=== PATIENT | female | born 1935 | race Caucasian/White ===

== ENCOUNTER → 2016-12-01 | Outpatient (CLI) | payer OTHER | LOC: FIMAGING 09:03 | PROVIDERS: ATTEND Family Medicine | DX: Z12.31 Encounter for screening mammogram for malignant neoplasm of breast (principal) | CPT/HCPCS: G0202 ==

== ENCOUNTER → 2017-01-07 | Outpatient (CLI) | payer OTHER | LOC: FLAB 10:33 | PROVIDERS: ATTEND Family Medicine | DX: R05 Cough (principal) ==